=== PATIENT | male | born 1990 | race American Indian/Alaskan Native ===

== ENCOUNTER 2021-03-07 05:50 | Emergency (ER) | payer OTHER, MEDICAID ==
[2021-03-07 06:04] VITALS: BP 148/91
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
== END 2021-03-07 08:30 | disposition home or self-care (01) ==
LOC: ED 05:50
DX: S09.90XA Unspecified injury of head, initial encounter (principal); V49.49XA Driver injured in collision with other motor vehicles in traffic accident, initial encounter; Y92.410 Unspecified street and highway as the place of occurrence of the external cause; Y93.89 Activity, other specified; Y99.8 Other external cause status
CPT/HCPCS: 99283